=== PATIENT | female | born 1990 ===

== ENCOUNTER 2016-12-17 05:52 | Day surgery (SDC) | payer OTHER ==
[2016-12-13 14:38] VITALS: BMI 29.2
[2016-12-17] MEDS ORDERED: Lactated Ringer's 1,000 ML IV ONE ×2 (06:36→08:45)
[2016-12-17] MEDS ORDERED: Lidocaine 1% Inj (20ml) IJ ONE (06:46)
[2016-12-17] MEDS ORDERED: Bupivacaine HCl 0.5% PF (30 ml) Inj IJ ONE (06:46)
[2016-12-17] MEDS ORDERED: ceFAZolin 1 GM in Sodium Chloride 0.9% 100 ML IVPB ONE (06:46)
[2016-12-17] MEDS ORDERED: Sodium Chloride 0.9% 1,000 ML IV SCH (07:00)
--- NOTE | 2016-12-17 07:03 | CP.PCM.PN ---
Subjective - Date & Time of Evaluation Date of Evaluation: 12/17/16 Time of Evaluation: 07:00 - Subjective Subjective: 26 year old female patient with no pertinent past medical history seen in [facility] for pre-operative evaluation for right revisional exostectomy of Arcos osteotomy surgery by Dr. Reeves today. Patient states that she has been having continual, increasing pain and discomfort to the area. She has exhausted conservative treatment and now opts for surgical intervention. NPO status confirmed. Patient is NAD and AAOx3. She denies any recent N/V/F/C/CP/SOB. Objective - Vital Signs/Intake and Output Vital Signs (last 24 hours): Temp Pulse Resp BP Pulse Ox 98.7 F 55 L 20 99/52 L 99 12/17/16 06:26 12/17/16 06:30 12/17/16 06:26 12/17/16 06:26 12/17/16 06:26 - Medications Medications: Current Medications Bupivacaine HCl (Marcaine 0.5% Pf (30 Ml)) 0 ml IJ ONCE ONE Stop: 12/17/16 06:47 Cefazolin Sodium 1 gm/ Sodium (Chloride) 100 mls @ 100 mls/hr IVPB ONCE ONE Stop: 12/17/16 07:45 Sodium Chloride (Sodium Chloride 0.9%) 1,000 mls @ 0 mls/hr IV .Q0M CORINE PRN Reason: As Directed Stop: 12/18/16 06:52 Lidocaine HCl (Lidocaine 1% (20ml)) 0 ml IJ ONCE ONE Stop: 12/17/16 06:47 - Constitutional Appears: Well, Non-toxic, No Acute Distress - Extremities Exam Additional comments: LE focused exam: Vasc: DP/PT pulses palpable 2/4 b/l. CFT < 3 seconds to digits 1-5 b/l. Skin temp warm to warm from proximal to distal. No edema noted b/l Neuro: Epicritic and protective sensation grossly intact b/l Derm: No open lesions, wounds, maceration, xerosis, abnormal growths or abnormal pigmentation noted at this time. Nails are normotrophic and well maintained MSK: Protrusion noted on right foot of exostosis of anterior calcaneal process. Mild POP noted in this area - Neurological Exam Neurological Exam: Alert, Awake, Oriented x3 - Psychiatric Exam Psychiatric exam: Normal Affect, Normal Mood Assessment and Plan - Assessment and Plan (Free Text) Assessment: 26 year old female patient seen in [facility] for pre-op evaluation of right revisional surgery of Arcos calcaneal osteotomy Plan: Pt was seen and examined in [facility] Pt NPO status was confirmed All Pre-op testing and clearance was in the chart Pt has exhausted all conservative treatment at this time and is opting for surgical intervention Pt was explained procedure and post-operative course All pt's questions were answered to satisfaction No guarantees were made Pt understands all risks, benefits and complications of procedure Pt will follow-up with Dr. Reeves
--- NOTE | 2016-12-17 07:09 | CP.SDSHP ---
Same Day Surgery H & P - History Proposed Procedure: Revision of Arcos calcaneal osteotomy Right foot Pre-Op Diagnosis: Painful exostosis right foot - Previous Medical/Surgical History Pain: 2.Mild Pain Previous Surgical History: Quang's calcaneal osteotomy Right foot - Allergies Allergies: Allergies No Known Allergies Allergy (Verified 01/17/15 11:47) - Physical Exam General Appearance: Good Vital Signs: Vital Signs 12/17/16 12/17/16 06:26 06:30 Temperature 98.7 F Pulse Rate 55 L 55 L Respiratory 20 Rate Blood Pressure 99/52 L O2 Sat by Pulse 99 Oximetry Mental Status: Alert & Oriented x3 Neuro: WNL Heart: WNL Lungs: WNL GI: WNL - {Optional Preform as Required} Integument: WNL Ortho: Other - Impression Pt. Evaluated Today:Candidate for Anesthesia & Procedure: Yes - Date & Time Date: 12/17/16 Time: 07:10 Short Stay Discharge - Short Stay Discharge Admitting Diagnosis/Reason for Visit: 84.[facility] Disposition: HOME/ ROUTINE Referrals: Carlos Dixon MD [Primary Care Provider] - Instructions: RICE Therapy (GEN), Oxycodone/Acetaminophen (By mouth), Cephalexin (By mouth) Additional Instructions (Diet, Activity): Patient in good/stable condition for discharge home. Pt to resume medications per medical reconciliation. Resume regular diet. Please keep dressing clean, dry, & intact to surgical site, use plastic bag over bandage for showering, wear post op shoe at all times when ambulating, call clinic if you see signs of infection (redness, swelling, malodor), please make an appointment to see Dr. Reeves in office/clinic within 1 week for post-op check. Progress Note/Discharge Note with Instructions: - Patient evaluated bedside in recovery s/p surgical procedure. - After surgical procedure patient in NAD - (+) Void, (+) Appetite - Capillary refill time <3s and NVSI intact. - Patient denies complaints at this time - Post operative instructions and plan of care explained to patient at length. - Pt. acknowledges understanding. - Patient stable for DC per podiatric surgery
[2016-12-17] MEDS ORDERED: Propofol 10 mg/ml Inj (20 ML) ONE (07:19)
[2016-12-17] MEDS ORDERED: Dexamethasone 4 mg/1 ml ONE (07:20)
[2016-12-17] MEDS ORDERED: Midazolam 2 MG/2 ML VIAL ONE (07:54)
[2016-12-17] MEDS ORDERED: Sodium Chloride 0.9% 100 ML IV ONE (08:00)
[2016-12-17] MEDS: Bupivacaine 0.5% Inj(30mL) ONE ×2 (08:25→08:42)
[2016-12-17] MEDS: Dexamethasone 4 mg/1 ml ONE ×2 (08:26→08:43)
[2016-12-17] MEDS ORDERED: HYDROmorphone 0.5 mg/0.5 ml ISec IVP PRN (08:57)
[2016-12-17] MEDS ORDERED: Lactated Ringer's 1,000 ML IV SCH (08:57)
--- NOTE | 2016-12-17 08:57 | PCM.SURG1 ---
Surgeon's Initial Post Op Note - Surgeon's Notes Surgeon: Dr. Reeves Tool Procurement Coordinator: Dr. Joseph, Dr. Lundy Type of Anesthesia: General LMA Anesthesia Administered By: Dr. Pierre Pre-Operative Diagnosis: Painful exostosis lateral right foot Operative Findings: None. M- 3-0 vicryl, 4-0 vicryl, 4-0 monocryl. I- 2cc dexamethasone with 8 cc marcaine plain Post-Operative Diagnosis: Same Operation Performed: Exostectomy of lateral right foot exostosis Specimen/Specimens Removed: None Estimated Blood Loss: EBL {In ML}: 1 Blood Products Given: N/A Drains Used: No Drains Post-Op Condition: Good Date of Surgery/Procedure: 12/17/16 Time of Surgery/Procedure: 08:58
[2016-12-17] MEDS ORDERED: Oxycodone/Acetaminophen 5/325 mg Tab PO PRN ×2 (09:00)
[2016-12-17 09:29] VITALS: RESP 18
[2016-12-17 11:16] VITALS: BP 99/61; PULSE 59; TEMP 98; O2SAT 98
[2016-12-17] MEDS ORDERED: Oxycodone/Acetaminophen 5/325 mg Tab PO ONE (11:19)
--- NOTE | 2016-12-17 16:58 | RAD ---
PROCEDURE: Right Foot Radiographs. HISTORY: s/p right foot surgery COMPARISON: None. FINDINGS: BONES: Normal. No fracture. JOINTS: Normal. SOFT TISSUES: Normal. OTHER FINDINGS: None. IMPRESSION: No significant or acute findings to account for/ related to the clinical presentation.
--- NOTE | 2016-12-18 01:28 | OP ---
PROCEDURE DATE: 12/17/2016 SURGEON: Girish Reeves DPM ASSISTANTS: Clark Joseph, PGY1, with Avis Lundy PGY1 HAND TUFTER: Dr. Pierre. ANESTHESIA: LMA. PREOPERATIVE DIAGNOSIS: Right foot exostosis. POSTOPERATIVE DIAGNOSIS: Right foot exostosis. NAME OF PROCEDURE: Right foot exostectomy. INDICATIONS: The patient is a 26-year-old female with the above diagnosis. The patient has exhausted all conservative treatment and now requests surgical intervention. The patient signed the consent after careful explanation of risks, benefits, complication and alternative for surgical procedure. No guarantees were given nor implied. NPO status was confirmed prior to taking the patient to the OR. PREPARATION: The patient was brought into the operating room and placed on the operating room table in a supine position. Timeout was performed for identification of the correct patient and procedure. Once general anesthesia was achieved, the right foot and ankle were then prepped and draped in the normal sterile manner. The patient's right foot was then exsanguinated with elevation and a pneumatic calf tourniquet was inflated to 250 mmHg and the procedure began. DESCRIPTION OF PROCEDURE: Attention was directed to the dorsolateral aspect of the calcaneus. Using a #15 blade, an approximately 4-cm linear incision was created along the dorsolateral calcaneus. The incision was then carried down through subcutaneous tissue being careful to retract and ligate all nerve and vascular structures as deemed necessary. The periosteal structures were then carefully dissected free of their osseous attachments and reflected medially and laterally thus exposing the calcaneocuboid joint down to the operative site. Next, utilizing an osteotome and mallet, the dorsal and lateral prominences were resected and passed from the operative field. A rongeur was then used to smooth down all the bony prominences and a bovie was used to cauterize any bleeders as necessary. Then, the wound was irrigated with copious amounts of normal sterile saline solution. With the use of 3-0 Vicryl suture material, capsular tissue was reapproximated; then, with the use of 4-0 Vicryl, subcutaneous tissue was reapproximated; then, with the use of 4-0 Monocryl, skin edges were reapproximated using running intradermal subcuticular technique. Steri-Strips were applied on top of the incision and dressed with sterile gauze, Alexa and Coban. POSTOPERATIVE CONDITION: The patient tolerated the procedure and anesthesia well and was escorted to the recovery room with vital signs stable and neurovascular status intact to the right foot. The patient will follow up with Dr. Reeves. Clark Joseph DPM MTDD
--- NOTE | 2016-12-18 02:50 | OP ---
PROCEDURE DATE: 12/17/2016 PREOPERATIVE DIAGNOSIS: Right foot exostosis. POSTOPERATIVE DIAGNOSIS: Right foot exostosis. PROCEDURE: Right foot exostectomy. SURGEON: Girish Reeves DPM. STATE FARM AGENT: Clark Joseph, PGY1 and Avis Lundy PGY1. BAKERY ASSOCIATE: Dr. Pierre. ANESTHESIA: LMA. INDICATIONS: The patient is a 26-year-old female with the above diagnosis. The patient has exhausted all conservative treatment at this time and now require surgical intervention. The patient signed the consent after careful explanation of the risks, benefits, complications and alternatives for surgical procedure. No guarantees were given nor implied. NPO status was confirmed prior to taking the patient into the OR. PREPARATION: The patient was brought into the operating room and placed on the operating room table in a supine position. Timeout was performed for identification of the correct patient and procedure. Once general anesthesia was achieved, the right foot and ankle was prepped and draped in normal sterile manner. The patient's right foot was then exsanguinated with elevation and the pneumatic catheter tourniquet was inflated and 250 mmHg and the procedure began. DESCRIPTION OF PROCEDURE: Attention was then directed to the dorsolateral aspect of the calcaneus. Using a #15 blade, a 4 cm in length linear incision was created along the dorsolateral calcaneus. The incision was then carried down through subcutaneous tissue, being careful to retract and ligate on neurovascular structures as deemed necessary. The periosteal structures were then carefully dissected via the osseus attachment and reflected medially and laterally thus exposing the calcaneocuboid joint down to the operative site. Next, utilizing an osteotome and malate, the dorsal and lateral prominences were resected and passed from the operative field. A rongeur was then used to smooth down all the bony prominences and a Bovie was used to cauterize any bleeders as necessary. Then the wound was irrigated with copious amounts of normal sterile saline solution. With the use of 3-0 Vicryl suture material, capillary tissue was reapproximated. Then using 4-0 Vicryl suture material, subcutaneous tissue was reapproximated. Then with the use of 4-0 Monocryl, skin edges were reapproximated using a running intradermal subcuticular technique. Steri-strips were applied on top of the incision and is dressed with gauze, Alexa, and Coban. POSTOPERATIVE CONDITION: The patient tolerated the anesthesia and procedure well and was escorted to the recovery room with vital signs stable and neurovascular status intact to the right foot. The patient will follow up with Dr. Reeves. Clark Joseph DPM
== END 2016-12-17 11:55 | disposition home or self-care (01) ==
LOC: H.OPSURG 05:52
PROVIDERS: ATTEND Podiatrist
DX: M84.871 Other disorders of continuity of bone, right ankle and foot (principal); F31.9 Bipolar disorder, unspecified; F20.9 Schizophrenia, unspecified; F41.9 Anxiety disorder, unspecified
CPT/HCPCS: 28041; 73630; 88304; 97161; G8978; G8979; G8980; J0690; J1100; J1170; J1885; J2001; J2250; J2405; J2704; J3010; J7030; J7120

== ENCOUNTER 2017-05-27 19:16 | Emergency (ER) | payer OTHER ==
[2017-05-27 19:17] VITALS: BMI 29.2
[2017-05-27 19:40] VITALS: BP 111/73; PULSE 60; RESP 14; TEMP 98.7; O2SAT 99
--- NOTE | 2017-05-27 20:15 | ED PDOC ---
HPI: Back Time Seen by Provider: 05/27/17 19:42 Chief Complaint (Nursing): Back Pain Chief Complaint (Provider): Bilateral low back pain x 1 day History Per: Patient History/Exam Limitations: no limitations Onset/Duration Of Symptoms: Days Current Symptoms Are (Timing): Still Present Quality Of Discomfort: Sharp Severity: Moderate Pain Scale Rating Of: 6 Previous Symptoms: None Associated Symptoms: None Additional Complaint(s): Pt states she feels it sharp in the spince sometimes. No fever/chills. No bladder or bowel incontinence. No numbness/tingling. Past Medical History Reviewed: Historical Data, Nursing Documentation, Vital Signs Vital Signs: Last Vital Signs Temp 98.7 F 05/27/17 19:36 Pulse 60 05/27/17 19:36 Resp 14 05/27/17 19:36 BP 111/73 05/27/17 19:36 Pulse Ox 99 05/27/17 19:36 - Medical History PMH: Anxiety, Arthritis (FEET), Bipolar Disorder, Depression, Kidney Stones, Schizophrenia Denies: Diabetes, Hepatitis, HIV, HTN, Chronic Kidney Disease, Seizures ( unknown), Sexually Transmitted Disease - Surgical History Surgical History: No Surg Hx - Family History Family History: States: Unknown Family Hx - Immunization History Hx Tetanus Toxoid Vaccination: No Hx Influenza Vaccination: No Hx Pneumococcal Vaccination: No - Home Medications Home Medications: Ambulatory Orders Medication Instructions Recorded Doxepin [Sinequan] 10 mg PO HS #30 cap 05/25/16 OLANZapine [Zyprexa] 2.5 mg PO HS #30 tab 05/25/16 lamoTRIgine [LaMICtal] 100 mg PO BID #30 tab 05/25/16 Cephalexin [Keflex] 500 mg PO TID 12/17/16 Norgestimate-Ethinyl Estradiol 1 tab PO DAILY 12/17/16 [Sprintec 28 Day Tablet] oxyCODONE/Acetaminophen [Percocet 5 - 325 mg PO Q4 PRN 12/17/16 5/325 mg Tab] Cyclobenzaprine [Cyclobenzaprine 10 mg PO Q8H PRN #12 tab 05/27/17 HCl] Ibuprofen [Motrin Tab] 800 mg PO Q6H PRN #20 tab 05/27/17 - Allergies Allergies/Adverse Reactions: Allergies Allergy/AdvReac Type Severity Reaction Status Date / Time No Known Allergies Allergy Verified 05/27/17 19:35 Physical Exam - Reviewed Nursing Documentation Reviewed: Yes Vital Signs Reviewed: Yes - Physical Exam Appears: Positive for: Well, Non-toxic, No Acute Distress Head Exam: Positive for: ATRAUMATIC, NORMAL INSPECTION, NORMOCEPHALIC Skin: Positive for: Normal Color, Warm, DRY Eye Exam: Positive for: Normal appearance ENT: Positive for: Normal ENT Inspection Neck: Positive for: Normal, Painless ROM Cardiovascular/Chest: Positive for: Regular Rate, Rhythm Respiratory: Positive for: Normal Breath Sounds. Negative for: Accessory Muscle Use, Respiratory Distress Gastrointestinal/Abdominal: Positive for: Bowel Sounds, Soft. Negative for: Tenderness Back: Positive for: Vertebral Tenderness. Negative for: Normal Inspection Extremity: Positive for: Normal ROM Neurologic/Psych: Positive for: Alert, Oriented - ECG O2 Sat by Pulse Oximetry: 99 Medical Decision Making Medical Decision Making: lray normal. Pt reports feeling better on re-evaluation. Disposition - Clinical Impression Clinical Impression: Back pain - Disposition Disposition: Routine/Home Disposition Time: 22:29 Condition: STABLE Prescriptions: Cyclobenzaprine [Cyclobenzaprine HCl] 10 mg PO Q8H PRN #12 tab PRN Reason: Muscle Spasm Ibuprofen [Motrin Tab] 800 mg PO Q6H PRN #20 tab PRN Reason: Pain Instructions: Acute Low Back Pain (ED) Forms: [employer] ([place])
--- NOTE | 2017-05-28 10:24 | RAD ---
PROCEDURE: Radiographs of the Lumbar Spine. HISTORY: back pain COMPARISON: Comparison made with prior lumbar spine radiographs dated 06/27/[address] scan abdomen pelvis dated 03/24/2011 which also imaged the lumbar spine in 3 planes. FINDINGS: BONES: No acute compression fractures no retropulsed fragments. Re- demonstrated are minor chronic anterior stature loss of the T11 and to a lesser degree T12 segments. DISC SPACES: Disc space heights maintained. OTHER FINDINGS: None. IMPRESSION: No acute fractures. 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
== END 2017-05-27 23:02 | disposition home or self-care (01) ==
LOC: H.ER 19:16
DX: M54.5 Low back pain (principal); F20.9 Schizophrenia, unspecified; F31.9 Bipolar disorder, unspecified; F41.9 Anxiety disorder, unspecified; Z87.442 Personal history of urinary calculi

== ENCOUNTER 2017-11-01 19:05 | Emergency (ER) | payer OTHER ==
[2017-11-01 19:06] VITALS: BMI 29.2
[2017-11-01] MEDS ORDERED: DiphenhydrAMINE 50 mg/ml Inj ONE (19:22)
[2017-11-01] MEDS ORDERED: DiphenhydrAMINE 50 mg/ml Inj IVP STA (19:24)
[2017-11-01 19:36] VITALS: O2SAT 100
--- NOTE | 2017-11-01 20:07 | ED PDOC ---
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 Patient feels her throat closing and has trouble breathing. She had a similar episode 3-4 months ago when she had peanut m&ms but had no allergies prior to that. Patient states she had a cookie which may have had nuts in it. Denies rash, itchy skin, or nausea. She took 2 tablets of Benadryl ASSOCIATION EXECUTIVE. PMD: [facility] Past Medical History Reviewed: Historical Data, Nursing Documentation, Vital Signs Vital Signs: Last Vital Signs Temp Pulse 76 11/01/17 19:36 Resp 19 11/01/17 19:36 BP 137/77 11/01/17 19:36 Pulse Ox 100 11/01/17 19:36 - Medical History PMH: Anxiety, Arthritis (FEET), Bipolar Disorder (schizoaffective disorder), Depression, Kidney Stones, Schizophrenia Denies: Diabetes, Hepatitis, HIV, HTN, Chronic Kidney Disease, Seizures ( unknown), Sexually Transmitted Disease Other PMH: Insomnia - Surgical History Other surgeries: Bilateral feet surgery - Family History Family History: States: CAD Other Family History: psychiatric disorder - Social History Current smoker - smoking cessation education provided: Yes Alcohol: None Drugs: Denies - Immunization History Hx Tetanus Toxoid Vaccination: No Hx Influenza Vaccination: No Hx Pneumococcal Vaccination: No - Home Medications Home Medications: Ambulatory Orders Medication Instructions Recorded Doxepin [Sinequan] 10 mg PO HS #30 cap 05/25/16 OLANZapine [Zyprexa] 2.5 mg PO HS #30 tab 05/25/16 lamoTRIgine [LaMICtal] 100 mg PO BID #30 tab 05/25/16 Cephalexin [Keflex] 500 mg PO TID 12/17/16 Norgestimate-Ethinyl Estradiol 1 tab PO DAILY 12/17/16 [Sprintec 28 Day Tablet] oxyCODONE/Acetaminophen [Percocet 5 - 325 mg PO Q4 PRN 12/17/16 5/325 mg Tab] Cyclobenzaprine [Cyclobenzaprine 10 mg PO Q8H PRN #12 tab 05/27/17 HCl] Ibuprofen [Motrin Tab] 800 mg PO Q6H PRN #20 tab 05/27/17 Epinephrine HCl [Epipen 0.3 mg IM ONCE PRN #0.3 ml 11/01/17 Auto-Injector] Prednisone 50 mg PO DAILY #2 tablet 11/01/17 - Allergies Allergies/Adverse Reactions: Allergies Allergy/AdvReac Type Severity Reaction Status Date / Time peanut Allergy RASH Verified 11/01/17 19:10 Review of Systems ROS Statement: Except As Marked, All Systems Reviewed And Found Negative ENT: Positive for: Other (Throat closing) Respiratory: Positive for: Shortness of Breath (trouble breathing) Gastrointestinal: Negative for: Nausea Skin: Negative for: Rash, Other (Itchy skin) Physical Exam - Reviewed Nursing Documentation Reviewed: Yes Vital Signs Reviewed: Yes - Physical Exam Appears: Positive for: Uncomfortable Head Exam: Positive for: ATRAUMATIC, NORMOCEPHALIC Skin: Positive for: Warm, Dry Eye Exam: Positive for: EOMI, PERRL ENT: Positive for: Pharynx Is (normal). Negative for: Other (uvula or soft tissue edema) Neck: Positive for: Painless ROM, Supple Cardiovascular/Chest: Positive for: Regular Rate, Rhythm. Negative for: Murmur Respiratory: Positive for: Respiratory Distress (mild). Negative for: Rales, Rhonchi, Wheezing Gastrointestinal/Abdominal: Positive for: Soft. Negative for: Tenderness Back: Positive for: Normal Inspection. Negative for: Decreased ROM Extremity: Positive for: Normal ROM. Negative for: Deformity Lymphatic: Negative for: Adenopathy Neurologic/Psych: Positive for: Alert. Negative for: Motor/Sensory Deficits - ECG O2 Sat by Pulse Oximetry: 100 (RA) Pulse Ox Interpretation: Normal Disposition - Clinical Impression Clinical Impression: Allergic reaction - Disposition Referrals: [facility] [Outside] (FOLLOW UP WITH CHAPARRITA KNOWLES OR YOUR DOCTOR IN 48 HOURS FOR REEVALUATION AND REFERRAL TO [facility] [employer]) Disposition: Routine/Home Disposition Time: 21:01 Condition: IMPROVED Additional Instructions: TAKE BENADRYL AROUND THE CLOCK FOR THE NEXT 48 HOURS NEEDED FOR ALLERGY SYMPTOMS FOLLOW UP WITH GILBERTO OR YOUR DOCTOR IN 48 HOURS FOR REFERRAL TO [facility] EXECUT[facility]UN[facility]S RETURN TO ER FOR DIFFICULTY BREATHING, FAINTING OR NEAR FAINTING, CHEST PAIN OR ANY OTHER WORRISOME SYMPTOMS. Prescriptions: Epinephrine HCl [Epipen Auto-Injector] 0.3 mg IM ONCE PRN #0.3 ml PRN Reason: Anaphylaxis Prednisone 50 mg PO DAILY #2 tablet Instructions: Food Allergy Forms: [employer] (Tajik) Medical Decision Making Medical Decision Making: Initial Impression: Allergic reaction Initial Plan: Benadryl 25mg IV Pepcid 40mg IV Methylprednisolone 125mg IV 2100 Pt feeling much better. All symptoms improved. Scribe Attestation: Documented by Jarvis Hendricks acting as a scribe for Saloni Villgaran MD. Provider Scribe Attestation: All medical record entries made by the Scribe were at my direction and personally dictated by me. I have reviewed the chart and agree that the record accurately reflects my personal performance of the history, physical exam, medical decision making, and the department course for this patient. I have also personally directed, reviewed, and agree with the discharge instructions and disposition.
[2017-11-01 21:05] VITALS: BP 113/59; PULSE 69; RESP 18; TEMP 98.8
== END 2017-11-01 21:19 | disposition home or self-care (01) ==
LOC: H.ER 19:05
DX: T78.40XA Allergy, unspecified, initial encounter (principal)
CPT/HCPCS: 96374; 96375; 99284; J1200; J2930

== ENCOUNTER 2017-11-02 16:44 | Emergency (ER) | payer OTHER ==
[2017-11-02 16:44] VITALS: BMI 29.2
[2017-11-02] MEDS ORDERED: Famotidine 20mg/50ml 20 MG in Premixed IV 50 EA IVPB STA (17:24)
[2017-11-02] MEDS ORDERED: Sodium Chloride 0.9% 1,000 ML IV STA (17:24)
--- NOTE | 2017-11-02 17:30 | ED PDOC ---
HPI: Allergic Reaction Chief Complaint (Nursing): Allergic Reaction Past Medical History Vital Signs: Last Vital Signs Temp 98.8 F 11/02/17 16:46 Pulse 98 H 11/02/17 16:46 Resp 16 11/02/17 16:46 BP 122/79 11/02/17 16:46 Pulse Ox 98 11/02/17 16:46 - Medical History PMH: Anxiety, Arthritis (FEET), Bipolar Disorder (schizoaffective disorder), Depression, Kidney Stones, Schizophrenia Denies: Diabetes, Hepatitis, HIV, HTN, Chronic Kidney Disease, Seizures ( unknown), Sexually Transmitted Disease - Family History Family History: States: Unknown Family Hx, CAD - Immunization History Hx Tetanus Toxoid Vaccination: No Hx Influenza Vaccination: No Hx Pneumococcal Vaccination: No - Home Medications Home Medications: Ambulatory Orders Medication Instructions Recorded Doxepin [Sinequan] 10 mg PO HS #30 cap 05/25/16 OLANZapine [Zyprexa] 2.5 mg PO HS #30 tab 05/25/16 lamoTRIgine [LaMICtal] 100 mg PO BID #30 tab 05/25/16 Cephalexin [Keflex] 500 mg PO TID 12/17/16 Norgestimate-Ethinyl Estradiol 1 tab PO DAILY 12/17/16 [Sprintec 28 Day Tablet] oxyCODONE/Acetaminophen [Percocet 5 - 325 mg PO Q4 PRN 12/17/16 5/325 mg Tab] Cyclobenzaprine [Cyclobenzaprine 10 mg PO Q8H PRN #12 tab 05/27/17 HCl] Ibuprofen [Motrin Tab] 800 mg PO Q6H PRN #20 tab 05/27/17 Epinephrine HCl [Epipen 0.3 mg IM ONCE PRN #0.3 ml 11/01/17 Auto-Injector] Prednisone 50 mg PO DAILY #2 tablet 11/01/17 - Allergies Allergies/Adverse Reactions: Allergies Allergy/AdvReac Type Severity Reaction Status Date / Time peanut Allergy RASH Verified 11/02/17 16:46 - ECG O2 Sat by Pulse Oximetry: 98 Disposition - Disposition
[2017-11-02] MEDS ORDERED: Famotidine 20mg/50ml 20 MG/50 ML BAG IVPB ONE (17:32)
[2017-11-02] MEDS ORDERED: Famotidine 20mg/50ml 20 MG/50 ML BAG IVPB STA (18:07)
--- NOTE | 2017-11-02 18:14 | ED PDOC ---
HPI: Allergic Reaction Time Seen by Provider: 11/02/17 17:20 Chief Complaint (Nursing): Allergic Reaction Chief Complaint (Provider): allergic reaction History Per: Patient (27 y/o female here for sensation of throat swelling noted earlier today. Patient took benadryl today without complete resolution. Was seen in ED ysterday with solumedrol/pepcid/benadryl and d/c with epi pen. Patient took prednisone 50mg tody) Past Medical History Reviewed: Historical Data, Nursing Documentation, Vital Signs Vital Signs: Last Vital Signs Temp 98.8 F 11/02/17 16:46 Pulse 98 H 11/02/17 16:46 Resp 16 11/02/17 16:46 BP 122/79 11/02/17 16:46 Pulse Ox 98 11/02/17 17:42 - Medical History PMH: Anxiety, Arthritis (FEET), Bipolar Disorder (schizoaffective disorder), Depression, Kidney Stones, Schizophrenia Denies: Diabetes, Hepatitis, HIV, HTN, Chronic Kidney Disease, Seizures ( unknown), Sexually Transmitted Disease - Family History Family History: States: Unknown Family Hx, CAD - Immunization History Hx Tetanus Toxoid Vaccination: No Hx Influenza Vaccination: No Hx Pneumococcal Vaccination: No - Home Medications Home Medications: Ambulatory Orders Medication Instructions Recorded Doxepin [Sinequan] 10 mg PO HS #30 cap 05/25/16 OLANZapine [Zyprexa] 2.5 mg PO HS #30 tab 05/25/16 lamoTRIgine [LaMICtal] 100 mg PO BID #30 tab 05/25/16 Cephalexin [Keflex] 500 mg PO TID 12/17/16 Norgestimate-Ethinyl Estradiol 1 tab PO DAILY 12/17/16 [Sprintec 28 Day Tablet] oxyCODONE/Acetaminophen [Percocet 5 - 325 mg PO Q4 PRN 12/17/16 5/325 mg Tab] Cyclobenzaprine [Cyclobenzaprine 10 mg PO Q8H PRN #12 tab 05/27/17 HCl] Ibuprofen [Motrin Tab] 800 mg PO Q6H PRN #20 tab 05/27/17 Epinephrine HCl [Epipen 0.3 mg IM ONCE PRN #0.3 ml 11/01/17 Auto-Injector] Prednisone 50 mg PO DAILY #2 tablet 11/01/17 predniSONE [Prednisone] 3 tab PO DAILY #12 tab 11/02/17 - Allergies Allergies/Adverse Reactions: Allergies Allergy/AdvReac Type Severity Reaction Status Date / Time peanut Allergy RASH Verified 11/02/17 16:46 Review of Systems ROS Statement: Except As Marked, All Systems Reviewed And Found Negative Physical Exam - Reviewed Nursing Documentation Reviewed: Yes Vital Signs Reviewed: Yes - Physical Exam Appears: Positive for: Well, Non-toxic, No Acute Distress Head Exam: Positive for: ATRAUMATIC, NORMAL INSPECTION, NORMOCEPHALIC Skin: Positive for: Normal Color, Warm, DRY Eye Exam: Positive for: EOMI, Normal appearance, PERRL ENT: Positive for: Normal ENT Inspection Neck: Positive for: Normal, Painless ROM Cardiovascular/Chest: Positive for: Regular Rate, Rhythm Respiratory: Positive for: CNT, Normal Breath Sounds Gastrointestinal/Abdominal: Positive for: Normal Exam, Soft Back: Positive for: Normal Inspection Extremity: Positive for: Normal ROM Neurologic/Psych: Positive for: Alert, Oriented, Other (patient noted with tics in ED.) - ECG O2 Sat by Pulse Oximetry: 98 - Progress ED Course And Treament: pepcid 20 mg iv x 1 dose NS 1 liter 500ml per hour Patient improved after administration of pepcid. Disposition - Clinical Impression Clinical Impression: Simple tics - Patient ED Disposition Is Patient to be Admitted: No - Disposition Referrals: [facility] [Outside] Disposition: Routine/Home Disposition Time: 18:49 Condition: FAIR Prescriptions: predniSONE [Prednisone] 3 tab PO DAILY #12 tab Instructions: Food Allergy
[2017-11-02 18:59] VITALS: BP 122/63; PULSE 70; RESP 18; TEMP 98.4
[2017-11-05 03:27] VITALS: O2SAT 98
== END 2017-11-02 19:02 | disposition home or self-care (01) ==
LOC: H.ER 16:44
DX: T78.40XA Allergy, unspecified, initial encounter (principal); F25.9 Schizoaffective disorder, unspecified; F31.9 Bipolar disorder, unspecified; F41.9 Anxiety disorder, unspecified
CPT/HCPCS: 96361; 96365; 99283; J7030